=== PATIENT | female | born 1960 | race American Indian/Alaskan Native ===

== ENCOUNTER 2017-06-28 15:31 | Inpatient (IN) | payer SELFPAY ==
[2017-06-28] MEDS ORDERED: ZOFRAN IV ONE (16:47)
[2017-06-28] MEDS ORDERED: NACL 0.9% 1000 ML 1,000 ML IV ONE (16:48)
[2017-06-28] MEDS ORDERED: ANTIVERT PO ONE (16:48)
--- NOTE | 2017-06-28 16:54 | Emergency Department Report ---
ED Dizziness [facility] - General Chief Complaint: Chest Pain Stated Complaint: CHEST PAIN Time Seen by Provider: 06/28/17 16:08 Source: patient, EMS Mode of arrival: Stretcher Limitations: No Limitations - History of Present Illness Initial Comments: 56-year-old female brought in by EMS with complaints of dizziness nausea vomiting. Thia occured while at work. While en route to ER, she was given 4 baby aspirin and nitroglycerin by EMS. Patient recalls having chest pain 2 days ago but is resolved without any event. This morning she developed chest pain and then later developed dizziness. Dizziness is worse with movement of head, change in position of her body, if she gets up from sitting or turns her head from [id number]. She denies any tinnitus patient has headache. Chest pain is located over her left chest, it is non-reproducible and does not radiate Past medical history is only significant for asthma. MD Complaint: dizziness, lightheadedness, difficulty walking -: Sudden, This morning Timing: sudden onset Description: sense of movement, lightheadedness, off-balance, difficulty walking History of Same: No History of Trauma: No Severity: moderate Improves With: nothing Worsens With: movement, position Associated Symptoms: ataxia, chest pain, loss of appetite, malaise, shortness of breath, weakness - Related Data Home Medications Medication Instructions Recorded Confirmed Last Taken Unobtainable 06/28/17 06/28/17 Unknown Allergies Allergy/AdvReac Type Severity Reaction Status Date / Time No Known Allergies Allergy Verified 06/28/17 16:10 ED Review of Systems ROS: Stated complaint: CHEST PAIN Other details as noted in HPI ED Past Medical Hx - Medications Home Medications: Home Medications Medication Instructions Recorded Confirmed Last Taken Type Unobtainable 06/28/17 06/28/17 Unknown History ED Physical Exam - General Limitations: No Limitations General appearance: alert, anxious, in distress (moderate to severe distress) - Head Head exam: Present: atraumatic, normocephalic - Eye Eye exam: Present: PERRL, EOMI, nystagmus (UNIDIRECTIONAL horizontal nystagmus) . Absent: scleral icterus, conjunctival injection - ENT ENT exam: Present: normal exam, normal orophraynx, mucous membranes moist - Neck Neck exam: Present: normal inspection, full ROM. Absent: tenderness, meningismus, lymphadenopathy - Respiratory Respiratory exam: Present: normal lung sounds bilaterally. Absent: respiratory distress, wheezes, rales, rhonchi, stridor, chest wall tenderness, accessory muscle use, decreased breath sounds, prolonged expiratory - Cardiovascular Cardiovascular Exam: Present: regular rate, normal rhythm, normal heart sounds. Absent: bradycardia, tachycardia, irregular rhythm, systolic murmur, diastolic murmur, rubs - GI/Abdominal GI/Abdominal exam: Present: soft, distended (obese abdomen), normal bowel sounds. Absent: tenderness, guarding, rebound, hyperactive bowel sounds, hypoactive bowel sounds, organomegaly, mass, bruit - Rectal Rectal exam: Present: deferred - Extremities Exam Extremities exam: Present: normal inspection, full ROM, normal capillary refill , pedal edema - Back Exam Back exam: Present: normal inspection, full ROM. Absent: tenderness, CVA tenderness (R), CVA tenderness (L), muscle spasm - Neurological Exam Neurological exam: Present: alert, oriented X3, CN II-XII intact, motor sensory deficit ED Course Vital Signs 06/28/17 06/28/17 06/28/17 15:41 15:45 15:54 Temperature 98.5 F Pulse Rate 93 H 92 H 97 H Respiratory 16 21 22 Rate Blood Pressure 145/78 145/78 Blood Pressure [Right] O2 Sat by Pulse 88 88 Oximetry 06/28/17 06/28/17 06/28/17 16:00 16:09 16:15 Temperature 98.5 F Pulse Rate 93 H 93 H 94 H Respiratory 24 24 17 Rate Blood Pressure 156/91 135/90 Blood Pressure 156/91 [Right] O2 Sat by Pulse 92 92 Oximetry 06/28/17 06/28/17 06/28/17 16:21 16:31 16:45 Temperature Pulse Rate 87 77 Respiratory 22 18 20 Rate Blood Pressure 129/76 129/76 Blood Pressure [Right] O2 Sat by Pulse 95 96 Oximetry 06/28/17 06/28/17 06/28/17 17:29 17:31 17:45 Temperature Pulse Rate 91 H Respiratory 25 H Rate Blood Pressure 129/76 142/80 146/78 Blood Pressure [Right] O2 Sat by Pulse 98 89 85 Oximetry 06/28/17 06/28/17 06/28/17 18:00 18:15 18:31 Temperature Pulse Rate 93 H 96 H 92 H Respiratory 20 20 17 Rate Blood Pressure 152/79 152/79 148/77 Blood Pressure [Right] O2 Sat by Pulse 96 98 97 Oximetry 06/28/17 18:45 Temperature Pulse Rate 93 H Respiratory 23 Rate Blood Pressure 136/77 Blood Pressure [Right] O2 Sat by Pulse 98 Oximetry - Consultations Consultation #1: 06/28/17 22:49 I discussed with hospitalist on-call, and he accepts patient's admission. ED Medical Decision Making - Lab Data Result diagrams: 06/28/17 16:31 06/28/17 16:31 Lab Results 06/28/17 06/28/17 06/28/17 Range/Units 16:31 16:31 18:58 WBC 14.9 H (4.5-11.0) K/mm3 RBC 5.00 (3.65-5.03) M/mm3 Hgb 13.6 (10.1-14.3) gm/dl Hct 42.2 (30.3-42.9) % MCV 84 (79-97) fl MCH 27 L (28-32) pg MCHC 32 (30-34) % RDW 13.5 (13.2-15.2) % Plt Count 263 (140-440) K/mm3 Lymph % (Auto) 9.6 L (13.4-35.0) % [place] % (Auto) 4.6 (0.0-7.3) % Eos % (Auto) 0.5 (0.0-4.3) % Baso % (Auto) 0.2 (0.0-1.8) % Lymph # 1.4 (1.2-5.4) K/mm3 [place] # 0.7 (0.0-0.8) K/mm3 Eos # 0.1 (0.0-0.4) K/mm3 Baso # 0.0 (0.0-0.1) K/mm3 Seg Neutrophils % 85.1 H (40.0-70.0) % Seg Neutrophils # 12.7 H (1.8-7.7) K/mm3 Sodium 143 (137-145) mmol/L Potassium 3.9 (3.6-5.0) mmol/L Chloride 101.2 (98-107) mmol/L Carbon Dioxide 23 (22-30) mmol/L Anion Gap 23 mmol/L BUN 12 (7-17) mg/dL Creatinine 0.5 L (0.7-1.2) mg/dL Estimated GFR > 60 ml/min BUN/Creatinine Ratio 24 % Glucose 175 H (65-100) mg/dL Calcium 9.6 (8.4-10.2) mg/dL Troponin T < 0.010 < 0.010 (0.00-0.029) ng/mL - EKG Data -: EKG Interpreted by Me - EKG Data 06/28/17 17:33 Normal sinus rhythm rate of 93 bpm, LEFTWARD axis is slightly prolonged QTC ST elevations - Radiology Data Radiology results: report reviewed, image reviewed Critical Care Time: No Critical care attestation.: If time is entered above; I have spent that time in minutes in the direct care of this critically ill patient, excluding procedure time. ED Disposition Clinical Impression: Chest pain, rule out acute myocardial infarction, Dizziness and giddiness Disposition: OP ADMIT IP TO THIS HOSP Is pt being admited?: Yes Does the pt Need Aspirin: Yes Condition: Stable Instructions: Chest Pain (ED) Referrals: PRIMARY CARE, [Primary Care Provider] - 3-5 Days Time of Disposition: 22:52
[2017-06-28] MEDS ORDERED: FIORICET PO ONE (17:00)
[2017-06-28 17:04] LABS: Basophils % (Auto) 0.2 % (0.0-1.8); Eosinophils % (Auto) 0.5 % (0.0-4.3); Hematocrit 42.2 % (30.3-42.9); Hemoglobin 13.6 gm/dl (10.1-14.3); Mean Corpuscular HGB Conc 32 % (30-34); Mean Corpuscular Hemoglobin 27 pg (28-32); Mean Corpuscular Volume 84 fl (79-97); Platelet Count 263 K/mm3 (140-440); Red Cell Distribution Width 13.5 % (13.2-15.2); White Blood Count 14.9 K/mm3 (4.5-11.0)
[2017-06-28 17:31] LABS: Anion Gap 23 mmol/L; BUN/Creatinine Ratio 24; Blood Urea Nitrogen 12 mg/dL (7-17); Calcium 9.6 mg/dL (8.4-10.2); Carbon Dioxide 23 mmol/L (22-30); Chloride 101.2 mmol/L (98-107); Glucose 175 mg/dL (65-100); Potassium 3.9 mmol/L (3.6-5.0); Sodium 143 mmol/L (137-145)
--- NOTE | 2017-06-28 18:12 | Cat Scan Report ---
FINAL REPORT EXAM: CT HEAD/BRAIN WO CON HISTORY: vERTIGO, NAUSEA, HEADACHES TECHNIQUE: Standard unenhanced CT of the head at 5.0 millimeter axial increments PRIORS: None. FINDINGS: The ventricular system is normal in size and configuration. There is no evidence for parenchymal volume loss. There is no evidence for mass lesion, mass effect, midline shift, acute intracranial hemorrhage, or acute ischemia/ infarction. Visualized paranasal sinuses are clear. IMPRESSION: Negative CT of the head. No acute intracranial process noted.
[2017-06-28] MEDS ORDERED: REGLAN IV ONE (20:48)
[2017-06-28] MEDS ORDERED: TORADOL IV ONE (20:49)
[2017-06-28] MEDS ORDERED: NUBAIN IV ONE (21:00)
[2017-06-28] MEDS ORDERED: DILAUDID IV PRN (23:33)
[2017-06-28] MEDS ORDERED: ZOFRAN IV PRN (23:34)
[2017-06-29] MEDS: NITRO-BID 2% TP SCH ×5 (00:04→17:56)
--- NOTE | 2017-06-29 00:35 | History and Physical Report ---
CHIEF COMPLAINT: Chest pain. Other complaint include dizziness, nausea, and vomiting. HISTORY OF PRESENTING ILLNESS: The patient is a 56-year-old female, who started having chest pain 2 days prior to presentation. The pain resolved spontaneously, but started again this morning. The pain is in the anterior chest wall on both sides and was associated with nausea and vomiting. Pain does not radiate and is nonreproducible. There is no history of shortness of breath; however, the patient has history of dizziness that occurs when patient changes position from sitting to standing or moves her head from side to side. There is no history of tinnitus, no history of palpitations. The patient also complained about difficulty with walking and maintaining balance because of the dizziness. PAST MEDICAL HISTORY: Only pertinent for asthma. FAMILY HISTORY: Noncontributory. SOCIAL HISTORY: The patient lives with family. Does not smoke, does not drink alcohol, and does not use illicit drugs. MEDICATIONS: The patient's home medications are not known. ALLERGIES: There are no known drug allergies. REVIEW OF SYSTEMS: CONSTITUTIONAL: There is no fever, no chills, no diaphoresis. HEENT: There is headache, but no sore throat. CARDIOVASCULAR SYSTEM: Chest pain is present. There is no orthopnea. RESPIRATORY: There is no shortness of breath or cough. GASTROINTESTINAL SYSTEM: Nausea and vomiting present. No abdominal pain, diarrhea, or constipation. NEUROLOGICAL SYSTEM: Dizziness present. No altered mental status. MUSCULOSKELETAL SYSTEM: There is no joint pain or swelling. DERMATOLOGICAL SYSTEM: There is no skin rash or itching. GENITOURINARY SYSTEM: There is no dysuria, hematuria, or flank pain. Rest of system review is normal. PHYSICAL EXAMINATION: GENERAL: At the time of exam, the patient was found to be alert, oriented x 3 and in mild distress due to dizziness. VITAL SIGNS: Shows normal temperature with pulse of 87, respiration 16, blood pressure 123/59, O2 sat of 97% on room air. HEENT: Showed pupils to be equal, round, reactive to light and accommodation. Extraocular muscles are intact. NECK: Supple with no JVD or carotid bruit. CARDIOVASCULAR SYSTEM: Show first and second heart sounds with no gallops or murmur. RESPIRATORY SYSTEM: Show good air entry on both sides of the lung with no abnormal breath sounds. GASTROINTESTINAL SYSTEM: Show abdomen to be full, soft, nontender with no organomegaly or rigidity. NEUROLOGIC: Shows no focal deficits. MUSCULOSKELETAL SYSTEM: Show no joint swelling or tenderness. DERMATOLOGICAL SYSTEM: Show no skin rash. GENITOURINARY SYSTEM: Show no costovertebral angle tenderness. PERTINENT LABORATORY AND IMAGING STUDIES: The patient has CBC done with elevated white count of 14,900 with normal hemoglobin, normal hematocrit, and normal platelets. CBC differential showing elevated neutrophil count of 85.1%. The patient's chemistry was unremarkable. Troponin level came back normal. IMAGING STUDIES: The patient had a CT of the head without contrast done that shows no intracranial abnormality. DIAGNOSES: 1. Chest pain. 2. Dizziness. PLAN: The patient will be admitted to medical floor on telemetry. We will have cardiac enzymes involving troponin, total CK, and CK-MB checked q.6 hours x 2 more levels. The patient will be n.p.o. for Lexiscan stress test in the morning and the patient will be on nitro paste half inch to anterior chest wall q.6 hours. The patient will be on aspirin 325 mg by mouth daily and will be on normal saline at 125 mL an hour. This patient will be on heparin 5000 units subq q.12 hours for DVT prophylaxis and will be on Tylenol 650 mg every 4 hours for fever, headache, and aspirin 325 mg by mouth daily. The patient will be on Dilaudid 1 mg every 6 hours IV as needed for pain and will be on IV Zofran 4 mg every 6 hours for nausea and vomiting. The patient will be on oxygen by nasal cannula at 2 liters per minute and will be on her home medications after reconciliation reconciled. JOB# [id number] OCN/DINO KINSEY
[2017-06-29 01:02] LABS: Creatine Kinase MB 11.1 ng/mL (0.0-4.0)
[2017-06-29 01:03] LABS: Creatine Kinase 170 units/L (30-135)
[2017-06-29] MEDS: TYLENOL PO PRN ×2 (06:35→11:59)
[2017-06-29 07:42] LABS: Creatine Kinase MB 11.3 ng/mL (0.0-4.0)
[2017-06-29 07:44] LABS: Creatine Kinase 187 units/L (30-135)
[2017-06-29 09:23] LABS: Hematocrit 38.3 % (30.3-42.9); Hemoglobin 12.4 gm/dl (10.1-14.3); Mean Corpuscular HGB Conc 32 % (30-34); Mean Corpuscular Hemoglobin 28 pg (28-32); Mean Corpuscular Volume 86 fl (79-97); Platelet Count 224 K/mm3 (140-440); Red Blood Count 4.48 M/mm3 (3.65-5.03); Red Cell Distribution Width 13.8 % (13.2-15.2)
[2017-06-29] MEDS ORDERED: LEXISCAN IV ONE ×2 (10:50→10:52)
[2017-06-29] MEDS: HEPARIN SUB-Q SCH ×2 (12:01→22:09)
[2017-06-29] MEDS: ASPIRIN PO SCH (12:01)
--- NOTE | 2017-06-29 12:35 | Progress Note ---
Assessment and Plan Assessment and plan: Chest pain. patient had stress test today, was negative. Chest pain , non cardiac. Vertigo. Patient feels room spinning. Will do MRI Brain to rule out stroke. need to also r/o labyrinthitis. Consult Neurology Elevated BP. may start anti-hypertensive if BP elevation persists DVT prophylaxis with heparin subcut Obesity. I discussed with her importance of losing weight Full code status. History Interval history: dizziness, chest pain Hospitalist Physical - Physical exam Narrative exam: Gen:Not in acute distress, lying in bed, obese HEENT: Normocephalic, atraumatic Neck:Supple, No JVD Lungs: Clear to auscultation bilaterally, no rhonchi, No crackles Heart:S1 and S2 reg, no murmurs, rubs or gallop Abdomen: soft, Non tender, Non distended, normal bowel sounds Extremity:No tenderness, no edema, no clubbing, no cyanosis Neuro:Awake,alert,oriented x 3, non focal, moves all ext - Constitutional Vitals: Temp Pulse Resp BP Pulse Ox 98 F 74 20 141/87 97 06/29/17 04:53 06/29/17 12:00 06/29/17 06:37 06/29/17 12:00 06/29/17 04:53 Results - Labs CBC & Chem 7: 07/01/17 08:07 06/28/17 16:31 Labs: Laboratory Last Values WBC 10.0 K/mm3 (4.5-11.0) 06/29/17 08:11 RBC 4.48 M/mm3 (3.65-5.03) 06/29/17 08:11 Hgb 12.4 gm/dl (10.1-14.3) 06/29/17 08:11 Hct 38.3 % (30.3-42.9) 06/29/17 08:11 MCV 86 fl (79-97) 06/29/17 08:11 MCH 28 pg (28-32) 06/29/17 08:11 MCHC 32 % (30-34) 06/29/17 08:11 RDW 13.8 % (13.2-15.2) 06/29/17 08:11 Plt Count 224 K/mm3 (140-440) 06/29/17 08:11 Lymph % (Auto) 9.6 % (13.4-35.0) L 06/28/17 16:31 [place] % (Auto) 4.6 % (0.0-7.3) 06/28/17 16:31 Eos % (Auto) 0.5 % (0.0-4.3) 06/28/17 16:31 Baso % (Auto) 0.2 % (0.0-1.8) 06/28/17 16:31 Lymph # 1.4 K/mm3 (1.2-5.4) 06/28/17 16:31 [place] # 0.7 K/mm3 (0.0-0.8) 06/28/17 16:31 Eos # 0.1 K/mm3 (0.0-0.4) 06/28/17 16:31 Baso # 0.0 K/mm3 (0.0-0.1) 06/28/17 16:31 Seg Neutrophils % 85.1 % (40.0-70.0) H 06/28/17 16:31 Seg Neutrophils # 12.7 K/mm3 (1.8-7.7) H 06/28/17 16:31 Sodium 143 mmol/L (137-145) 06/28/17 16:31 Potassium 3.9 mmol/L (3.6-5.0) 06/28/17 16:31 Chloride 101.2 mmol/L (98-107) 06/28/17 16:31 Carbon Dioxide 23 mmol/L (22-30) 06/28/17 16:31 Anion Gap 23 mmol/L 06/28/17 16:31 BUN 12 mg/dL (7-17) 06/28/17 16:31 Creatinine 0.5 mg/dL (0.7-1.2) L 06/28/17 16:31 Estimated GFR > 60 ml/min 06/28/17 16:31 BUN/Creatinine Ratio 24 % 06/28/17 16:31 Glucose 175 mg/dL (65-100) H 06/28/17 16:31 Calcium 9.6 mg/dL (8.4-10.2) 06/28/17 16:31 Total Creatine Kinase 187 units/L (30-135) H 06/29/17 06:38 CK-MB (CK-2) 11.3 ng/mL (0.0-4.0) H 06/29/17 06:38 CK-MB (CK-2) Rel Index 6.0 (0-4) H 06/29/17 06:38 Troponin T < 0.010 ng/mL (0.00-0.029) 06/29/17 06:38
[2017-06-29] MEDS: NACL 0.9% 1000 ML 1,000 ML IV SCH (13:30)
[2017-06-30] MEDS: NACL 0.9% 1000 ML 1,000 ML IV SCH (05:50)
[2017-06-30] MEDS: NITRO-BID 2% TP SCH ×3 (05:51→16:23)
[2017-06-30] MEDS: TYLENOL PO PRN (09:06)
--- NOTE | 2017-06-30 09:56 | Magnetic Resonance Report ---
MRI OF THE BRAIN WITHOUT CONTRAST: HISTORY: CVA PROCEDURE: Multiplanar, multisequence MR imaging of the brain without IV contrast was performed. FINDINGS: The brain parenchyma signal intensity and its cleary white interface are within normal limits on all sequences. No evidence for acute ischemia, hemorrhage or mass. No chronic infarct or extra-axial fluid collection. The midline structures are central. The basal cisterns are patent. Normal ventricular size. The orbital cavities and sella turcica demonstrate no abnormality. The visualized paranasal sinuses and mastoid air cells are well aerated. IMPRESSION: Unremarkable non-enhanced MRI of the brain.
[2017-06-30] MEDS: HEPARIN SUB-Q SCH (10:00)
[2017-06-30] MEDS: ASPIRIN PO SCH (10:00)
[2017-06-30] MEDS ORDERED: PROTONIX IV SCH (11:00)
[2017-06-30 11:48] LABS: Hematocrit 39.4 % (30.3-42.9); Hemoglobin 13.2 gm/dl (10.1-14.3)
--- NOTE | 2017-06-30 11:55 | Treadmill Report ---
NUCLEAR PERFUSION SCAN REFERRING PHYSICIAN: . PROTOCOL: The patient was brought to the stress lab in a post-absorptive state, given 10 mCi of technetium 99m at rest. The patient underwent rest imaging. The patient underwent Lexiscan stress test per standard protocol. At peak stress, the patient was given 26 mCi of technetium 99m. Shortly thereafter, the patient underwent stress imaging. A technically difficult study due to body habitus. Raw imaging reveals mild GI artifact. No significant motion artifact. SPECT imaging examined carefully in horizontal long axis, vertical long axis, and short axis views. Technically difficult study, but grossly no significant reversible or perfusion defect suggestive of prior infarction or ischemia. Gated wall motion reveals normal systolic thickening, calculated ejection fraction of 70%. No TID. CONCLUSIONS: 1. Technically difficult study, but probably normal, grossly without significant evidence of ischemia or prior infarction. 2. Normal left ventricular systolic performance without evidence of transient ischemic dilatation or stress-induced segmental wall motion abnormalities. JOB# [id number] MARIN/DINO
[2017-06-30] MEDS ORDERED: Fluarix Quad 2017-2018(36 MOS+ IM ONE (12:00)
[2017-06-30] MEDS ORDERED: PREVNAR 13 IM ONE (12:00)
[2017-06-30] MEDS: D5/0.45NS 1,000 ML IV SCH (13:02)
--- NOTE | 2017-06-30 13:18 | Gastroenterology Consultation ---
<JEFFREY TINEO - Last Filed: 06/30/17 13:25> History of Present Illness - Reason for Consult Consult date: 06/30/17 BRBPR Requesting physician: COLLEEN ODEN - History of Present Illness Patient is a 56 y/o female with PMH of asthma who presented to the ER with the c /o CP, dizziness, N/V. Cardiac enzymes negative. Stress test negative. CT of head and MRI of brain unremarkable. GI has been consulted for BRBPR. This afternoon pt resting in bed, no acute distress. Reports BMs x 2 today with brown stool and bright red blood in the toilet. No hematemesis or melena. Denies fever, wt loss, abd pain, N/V, dysphagia, diarrhea, or constipation. Repeat HGB today was WNL at 13.2/39.4 (trending up). Takes diclofenac at home BID. No hx of PUD or liver disease. No Fhx of colon cancer. No previous colonoscopy. Past History Past Medical History: other (asthma, obesity) Past Surgical History: , Other (ankle) Social history: denies: smoking, alcohol abuse Medications and Allergies Allergies Allergy/AdvReac Type Severity Reaction Status Date / Time No Known Allergies Allergy Verified 06/28/17 16:10 Home Medications Medication Instructions Recorded Confirmed Last Taken Type Famotidine [Pepcid] 20 mg PO BID #30 tablet 07/01/17 Unknown Rx Meclizine [Antivert] 25 mg PO Q8HR PRN #20 tablet 07/01/17 Unknown Rx Prednisone [predniSONE 5 mg (6-Day 5 mg PO .TAPER #1 tab.ds.pk 07/01/17 Unknown Rx Pack, 21 Tabs)] amLODIPine [Norvasc] 5 mg PO QDAY #30 tablet 07/01/17 Unknown Rx Active Meds: Active Medications Acetaminophen (Tylenol) 650 mg PO Q4H PRN PRN Reason: For Pain/Fever/Headache Last Admin: 06/30/17 09:06 Dose: 650 mg Famotidine (Pepcid) 20 mg IV BID LIBRADO Hydromorphone HCl (Dilaudid) 1 mg IV Q4H PRN PRN Reason: Pain , Severe (7-10) Sodium Chloride (Nacl 0.9% 1000 Ml) 1,000 mls @ 125 mls/hr IV DIRECT LIBRADO Last Admin: 06/30/17 05:50 Dose: 125 mls/hr Dextrose/Sodium Chloride (D5/0.45ns) 1,000 mls @ 75 mls/hr IV DIRECT LIBRADO Last Admin: 06/30/17 13:02 Dose: 75 mls/hr Meclizine HCl (Antivert) 25 mg PO Q8HR [facility] Nitroglycerin (Nitro-Bid 2%) 0.5 inch TP QIDNTG LIBRADO PRN Reason: Protocol Last Admin: 06/30/17 11:59 Dose: 0.5 inch Ondansetron HCl (Zofran) 4 mg IV Q6H PRN PRN Reason: Nausea And Vomiting Review of Systems - Review of Systems All systems: negative Constitutional: other (dizziness) Gastrointestinal: hematochezia Exam - Constitutional Vital Signs: Temp Pulse Resp BP Pulse Ox 98.7 F 76 18 146/84 96 06/30/17 12:41 06/30/17 12:41 06/30/17 12:41 06/30/17 12:41 06/30/17 12:41 General appearance: no acute distress, obese - EENT Eyes: PERRL, EOM intact ENT: hearing intact - Respiratory Respiratory: bilateral: wheezing - Cardiovascular Rhythm: regular Heart Sounds: Present: S1 & S2 - Gastrointestinal General gastrointestinal: Present: soft, non-tender, normal bowel sounds - Integumentary Integumentary: Present: warm, dry - Neurologic Neurological: alert and oriented x3 - Labs CBC & Chem 7: 06/30/17 11:27 06/28/17 16:31 Lab Results: Laboratory Results - last 24 hr 06/30/17 11:27 Hgb 13.2 Hct 39.4 Assessment and Plan 1.GI bleed 2.hematochezia -HGB 13.2-trending up -continue to monitor H/H and transfuse as needed -BMs x 2 today with brown stool and bright red blood in toilet -hemodynamically stable -etiology unclear- hemorrhoid vs diverticular vs malignancy vs other -clinically pt is stable w/o associated symptoms and H/H stable -recommend pt have a colonoscopy as an outpatient- office information and card given to pt -okay to be d/c per GI standpoint with f/u clinic appt in 1-2 weeks -will sign off, please re-consult if needed <BUSTER RAJPUT - Last Filed: 07/01/17 11:55> Medications and Allergies Active Meds: Active Medications Acetaminophen (Tylenol) 650 mg PO Q4H PRN PRN Reason: For Pain/Fever/Headache Last Admin: 06/30/17 09:06 Dose: 650 mg Amlodipine Besylate (Norvasc) 5 mg PO QDAY [facility] Famotidine (Pepcid) 20 mg IV BID [facility] Last Admin: 07/01/17 10:42 Dose: 20 mg Hydromorphone HCl (Dilaudid) 1 mg IV Q4H PRN PRN Reason: Pain , Severe (7-10) Dextrose/Sodium Chloride (D5/0.45ns) 1,000 mls @ 75 mls/hr IV DIRECT [facility] Last Admin: 07/01/17 07:18 Dose: 75 mls/hr Lamotrigine (Lamictal) 50 mg PO BID [facility] Last Admin: 07/01/17 10:42 Dose: 50 mg Meclizine HCl (Antivert) 25 mg PO Q8HR [facility] Last Admin: 07/01/17 06:07 Dose: 25 mg Methylprednisolone Sodium Succinate (Solu-Medrol) 80 mg IV ONCE NR Stop: 07/01/17 15:00 Ondansetron HCl (Zofran) 4 mg IV Q6H PRN PRN Reason: Nausea And Vomiting Exam - Constitutional Vital Signs: Temp Pulse Resp BP Pulse Ox 99.7 F H 76 20 188/99 95 07/01/17 08:33 07/01/17 10:48 07/01/17 10:00 07/01/17 10:48 07/01/17 08:33 - Labs CBC & Chem 7: 07/01/17 08:07 06/28/17 16:31 Lab Results: Laboratory Results - last 24 hr 06/30/17 06/30/17 07/01/17 16:14 21:11 00:54 Hgb 12.9 12.5 Hct 38.5 37.9 POC Glucose 159 H 07/01/17 08:07 Hgb 13.2 Hct 39.3 POC Glucose Assessment and Plan - Patient Problems (1) Rectal bleeding Current Visit: Yes Status: Acute Plan to address problem: The patient was personally seen and examined. She has had minor rectal bleeding and a has a normal H&H. Will plan for outpatient colonoscopy. Thank you for asking us to see her in consultation. Buster Rajput MD
[2017-06-30] MEDS: PEPCID IV SCH ×2 (13:32→22:22)
[2017-06-30] MEDS: ANTIVERT PO SCH ×2 (13:32→22:22)
--- NOTE | 2017-06-30 16:27 | Progress Note ---
Assessment and Plan Assessment and plan: Chest pain. patient had stress test yesterday, was negative. Chest pain , non cardiac, likely due to GERD. Vertigo. Patient feels room spinning. MRI Brain uremarkable, no new stroke. need to also r/o labyrinthitis. Consulted Neurology Elevated BP. may start anti-hypertensive if BP elevation persists Bright red blood per rectum, one episode. Obtain H/H Q 8h, stop Aspirin and Heparin subcut. Consulted GI Physician. She was evaluated by Dr. Berumen and I discussed with him. For outpatient workup since H/H stable. DVT prophylaxis with SCDs only. Heparin subcut discontinued Obesity. I discussed with her importance of losing weight Full code status. History Interval history: dizziness, chest pain resolved Bright red blood per rectum episode today Hospitalist Physical - Physical exam Narrative exam: Gen:Not in acute distress, lying in bed, obese HEENT: Normocephalic, atraumatic Neck:Supple, No JVD Lungs: Clear to auscultation bilaterally, no rhonchi, No crackles Heart:S1 and S2 reg, no murmurs, rubs or gallop Abdomen: soft, Non tender, Non distended, normal bowel sounds Extremity:No tenderness, no edema, no clubbing, no cyanosis Neuro:Awake,alert,oriented x 3, non focal, moves all ext - Constitutional Vitals: Temp Pulse Resp BP Pulse Ox 98.7 F 72 18 173/78 96 06/30/17 12:41 06/30/17 16:23 06/30/17 12:41 06/30/17 16:23 06/30/17 12:41 Results - Labs CBC & Chem 7: 07/01/17 08:07 06/28/17 16:31 Labs: Laboratory Last Values WBC 10.0 K/mm3 (4.5-11.0) 06/29/17 08:11 RBC 4.48 M/mm3 (3.65-5.03) 06/29/17 08:11 Hgb 13.2 gm/dl (10.1-14.3) 06/30/17 11:27 Hct 39.4 % (30.3-42.9) 06/30/17 11:27 MCV 86 fl (79-97) 06/29/17 08:11 MCH 28 pg (28-32) 06/29/17 08:11 MCHC 32 % (30-34) 06/29/17 08:11 RDW 13.8 % (13.2-15.2) 06/29/17 08:11 Plt Count 224 K/mm3 (140-440) 06/29/17 08:11 Lymph % (Auto) 9.6 % (13.4-35.0) L 06/28/17 16:31 Parke % (Auto) 4.6 % (0.0-7.3) 06/28/17 16:31 Eos % (Auto) 0.5 % (0.0-4.3) 06/28/17 16:31 Baso % (Auto) 0.2 % (0.0-1.8) 06/28/17 16:31 Lymph # 1.4 K/mm3 (1.2-5.4) 06/28/17 16:31 Parke # 0.7 K/mm3 (0.0-0.8) 06/28/17 16:31 Eos # 0.1 K/mm3 (0.0-0.4) 06/28/17 16:31 Baso # 0.0 K/mm3 (0.0-0.1) 06/28/17 16:31 Seg Neutrophils % 85.1 % (40.0-70.0) H 06/28/17 16:31 Seg Neutrophils # 12.7 K/mm3 (1.8-7.7) H 06/28/17 16:31 Sodium 143 mmol/L (137-145) 06/28/17 16:31 Potassium 3.9 mmol/L (3.6-5.0) 06/28/17 16:31 Chloride 101.2 mmol/L (98-107) 06/28/17 16:31 Carbon Dioxide 23 mmol/L (22-30) 06/28/17 16:31 Anion Gap 23 mmol/L 06/28/17 16:31 BUN 12 mg/dL (7-17) 06/28/17 16:31 Creatinine 0.5 mg/dL (0.7-1.2) L 06/28/17 16:31 Estimated GFR > 60 ml/min 06/28/17 16:31 BUN/Creatinine Ratio 24 % 06/28/17 16:31 Glucose 175 mg/dL (65-100) H 06/28/17 16:31 Calcium 9.6 mg/dL (8.4-10.2) 06/28/17 16:31 Total Creatine Kinase 187 units/L (30-135) H 06/29/17 06:38 CK-MB (CK-2) 11.3 ng/mL (0.0-4.0) H 06/29/17 06:38 CK-MB (CK-2) Rel Index 6.0 (0-4) H 06/29/17 06:38 Troponin T < 0.010 ng/mL (0.00-0.029) 06/29/17 06:38
[2017-06-30 16:30] LABS: Hematocrit 38.5 % (30.3-42.9); Hemoglobin 12.9 gm/dl (10.1-14.3)
[2017-06-30] MEDS: LaMICtal PO SCH (22:22)
[2017-07-01 01:25] LABS: Hematocrit 37.9 % (30.3-42.9); Hemoglobin 12.5 gm/dl (10.1-14.3)
[2017-07-01] MEDS: ANTIVERT PO SCH ×3 (06:07→23:05)
[2017-07-01] MEDS: NITRO-BID 2% TP SCH (06:09)
[2017-07-01] MEDS: D5/0.45NS 1,000 ML IV SCH (07:18)
[2017-07-01 08:22] LABS: Hematocrit 39.3 % (30.3-42.9); Hemoglobin 13.2 gm/dl (10.1-14.3)
[2017-07-01] MEDS: PEPCID IV SCH ×2 (10:42→23:05)
[2017-07-01] MEDS: LaMICtal PO SCH ×2 (10:42→23:04)
--- NOTE | 2017-07-01 10:43 | Discharge Summary ---
Providers - Providers Date of Admission: 06/28/17 23:29 Date of discharge: 07/01/17 Attending physician: COLLEEN ODEN 06/30/17 09:39 Consult to Physician [CONS] Routine Consulting Provider: YISSEL ROSENBAUM Reason For Exam: Dizziness Place consult to:: Dr. Rosenbaum Notified:: Tay ROTH Phone number called:: Was contact made?: Yes If yes, spoke with:: Milly-office Time called:: 10:05 06/30/17 10:37 Consult to Physician [CONS] Routine Consulting Provider: BUSTER BERUMEN Reason For Exam: Bright red blood per rectum Place consult to:: Dr. Berumen Notified:: Tay ROTH Phone number called:: Was contact made?: Yes If yes, spoke with:: Denise-Office Time called:: 11:11 Primary care physician: ORACLE OBIEE DEVELOPER Hospitalization Condition: Fair Disposition: DC-01 TO HOME OR SELFCARE Core Measure Documentation - Palliative Care Palliative Care/ Comfort Measures: Not Applicable - Core Measures Any of the following diagnoses?: none Exam - Constitutional Vitals: Temp Pulse Resp BP Pulse Ox 99.7 F H 81 81 H 178/100 95 07/01/17 08:33 07/01/17 08:33 07/01/17 08:33 07/01/17 08:33 07/01/17 08:33 Plan Activity: advance as tolerated Diet: low fat, low cholesterol, low salt Additional Instructions: 1.Follow up with PCP in 1 week. 2.Follow up with Dr. Rosenbaum in 1 week Follow up with: PRIMARY CARE, [Primary Care Provider] - 3-5 Days Prescriptions: amLODIPine [Norvasc] 5 mg PO QDAY #30 tablet Meclizine [Antivert] 25 mg PO Q8HR PRN #20 tablet PRN Reason: dizziness Prednisone [predniSONE 5 mg (6-Day Pack, 21 Tabs)] 5 mg PO .TAPER #1 tab.ds.pk
[2017-07-01] MEDS ORDERED: APRESOLINE IV ONE ×2 (11:00→16:25)
[2017-07-01] MEDS ORDERED: NORVASC PO SCH (11:00)
[2017-07-01] MEDS ORDERED: NORVASC PO ONE (16:25)
--- NOTE | 2017-07-01 17:30 | Progress Note ---
Hospitalist Physical - Constitutional Vitals: Temp Pulse Resp BP Pulse Ox 99.5 F 77 18 170/82 97 07/01/17 17:20 07/01/17 17:20 07/01/17 17:20 07/01/17 17:20 07/01/17 17:20 Results - Labs CBC & Chem 7: 07/01/17 08:07 06/28/17 16:31 Labs: Laboratory Last Values WBC 10.0 K/mm3 (4.5-11.0) 06/29/17 08:11 RBC 4.48 M/mm3 (3.65-5.03) 06/29/17 08:11 Hgb 13.2 gm/dl (10.1-14.3) 07/01/17 08:07 Hct 39.3 % (30.3-42.9) 07/01/17 08:07 MCV 86 fl (79-97) 06/29/17 08:11 MCH 28 pg (28-32) 06/29/17 08:11 MCHC 32 % (30-34) 06/29/17 08:11 RDW 13.8 % (13.2-15.2) 06/29/17 08:11 Plt Count 224 K/mm3 (140-440) 06/29/17 08:11 Lymph % (Auto) 9.6 % (13.4-35.0) L 06/28/17 16:31 [place] % (Auto) 4.6 % (0.0-7.3) 06/28/17 16:31 Eos % (Auto) 0.5 % (0.0-4.3) 06/28/17 16:31 Baso % (Auto) 0.2 % (0.0-1.8) 06/28/17 16:31 Lymph # 1.4 K/mm3 (1.2-5.4) 06/28/17 16:31 [place] # 0.7 K/mm3 (0.0-0.8) 06/28/17 16:31 Eos # 0.1 K/mm3 (0.0-0.4) 06/28/17 16:31 Baso # 0.0 K/mm3 (0.0-0.1) 06/28/17 16:31 Seg Neutrophils % 85.1 % (40.0-70.0) H 06/28/17 16:31 Seg Neutrophils # 12.7 K/mm3 (1.8-7.7) H 06/28/17 16:31 Sodium 143 mmol/L (137-145) 06/28/17 16:31 Potassium 3.9 mmol/L (3.6-5.0) 06/28/17 16:31 Chloride 101.2 mmol/L (98-107) 06/28/17 16:31 Carbon Dioxide 23 mmol/L (22-30) 06/28/17 16:31 Anion Gap 23 mmol/L 06/28/17 16:31 BUN 12 mg/dL (7-17) 06/28/17 16:31 Creatinine 0.5 mg/dL (0.7-1.2) L 06/28/17 16:31 Estimated GFR > 60 ml/min 06/28/17 16:31 BUN/Creatinine Ratio 24 % 06/28/17 16:31 Glucose 175 mg/dL (65-100) H 06/28/17 16:31 POC Glucose 159 (70-105) H 06/30/17 21:11 Calcium 9.6 mg/dL (8.4-10.2) 06/28/17 16:31 Total Creatine Kinase 187 units/L (30-135) H 06/29/17 06:38 CK-MB (CK-2) 11.3 ng/mL (0.0-4.0) H 06/29/17 06:38 CK-MB (CK-2) Rel Index 6.0 (0-4) H 06/29/17 06:38 Troponin T < 0.010 ng/mL (0.00-0.029) 06/29/17 06:38
[2017-07-01] MEDS ORDERED: APRESOLINE IV PRN (17:31)
[2017-07-02] MEDS: ANTIVERT PO SCH (06:37)
[2017-07-02] MEDS ORDERED: NORVASC PO ONE (10:00)
[2017-07-02] MEDS ORDERED: NORVASC PO SCH (10:00)
[2017-07-02] MEDS: LaMICtal PO SCH (10:38)
[2017-07-02] MEDS: PEPCID IV SCH (10:38)
[2017-07-02 13:00] VITALS: BP 148/81
== END 2017-07-02 14:09 | disposition home or self-care (01) | DRG 392 ==
LOC: ED 15:31 → 4A 23:29
PROVIDERS: ADMIT Internal Medicine; ATTEND Internal Medicine
PROC: 3E0234Z Introduction of Serum, Toxoid and Vaccine into Muscle, Percutaneous Approach (ICD-10-PCS; principal; 2017-06-30)
DX: K21.9 Gastro-esophageal reflux disease without esophagitis (principal); K92.2 Gastrointestinal hemorrhage, unspecified; R42 Dizziness and giddiness; R07.89 Other chest pain; E66.9 Obesity, unspecified; Z68.32 Body mass index [BMI] 32.0-32.9, adult; Z23 Encounter for immunization
CPT/HCPCS: 36415; 70450; 70551; 78452; 80048; 82270; 82550; 82553; 82962; 84484; 85014; 85018; 85025; 85027; 90670; 90686; 93005; 93010; 93017; 96361; 96374; 96375; A9502; J0360; J1644; J1885; J2300; J2405; J2765; J2785; J2930; J7030

== ENCOUNTER 2018-08-30 09:50 | Emergency (ER) | payer SELFPAY ==
[2018-08-30 10:04] VITALS: BP 160/91
--- NOTE | 2018-08-30 11:28 | Emergency Department Report ---
ED Lower Extremity HPI - General Chief Complaint: Extremity Injury, Lower Stated Complaint: LFT KNEE/INJURY/PAIN Time Seen by Provider: 08/30/18 11:27 Source: patient Mode of arrival: Wheelchair Limitations: No Limitations - History of Present Illness Initial Comments: Nirmala is a 57-year-old -[place] female who comes to the emergency room today after being at the grocery store and hitting her toe on a copper floorboard. She states that she felt a pop in her knee and has had pain since. She did not fall. There was no blunt trauma to the knee. Patient states that she has severe arthritis in the right knee. Vision is ambulatory but complaining of pain with ambulation -: Sudden - Related Data Previous Rx's Medication Instructions Recorded Last Taken Type Famotidine [Pepcid] 20 mg PO BID #30 tablet 07/01/17 Unknown Rx Meclizine [Antivert] 25 mg PO Q8HR PRN #20 tablet 07/01/17 Unknown Rx amLODIPine [Norvasc] 5 mg PO QDAY #30 tablet 07/01/17 Unknown Rx predniSONE [Deltasone] 20 mg PO DAILY #5 tablet 08/30/18 Unknown Rx traMADol [Ultram] 50 mg PO Q6HR PRN #12 tablet 08/30/18 Unknown Rx Allergies Allergy/AdvReac Type Severity Reaction Status Date / Time No Known Allergies Allergy Verified 06/28/17 16:10 ED Review of Systems ROS: Stated complaint: LFT KNEE/INJURY/PAIN Other details as noted in HPI Comment: All other systems reviewed and negative Constitutional: denies: see HPI Eyes: denies: eye pain ENT: denies: ear pain Respiratory: denies: orthopnea Cardiovascular: denies: palpitations Endocrine: denies: flushing Gastrointestinal: denies: nausea Genitourinary: denies: urgency Musculoskeletal: as per HPI Skin: denies: rash Neurological: denies: headache Psychiatric: denies: depression Hematological/Lymphatic: denies: easy bleeding ED Past Medical Hx - Past Medical History Previous Medical History?: Yes Hx Asthma: Yes Additional medical history: OA - Surgical History Past Surgical History?: Yes Additional Surgical History: right foot surgery. . kidney stones - Social History Smoking Status: Never Smoker Substance Use Type: None - Medications Home Medications: Home Medications Medication Instructions Recorded Confirmed Last Taken Type Famotidine [Pepcid] 20 mg PO BID #30 tablet 07/01/17 Unknown Rx Meclizine [Antivert] 25 mg PO Q8HR PRN #20 tablet 07/01/17 Unknown Rx amLODIPine [Norvasc] 5 mg PO QDAY #30 tablet 07/01/17 Unknown Rx predniSONE [Deltasone] 20 mg PO DAILY #5 tablet 08/30/18 Unknown Rx traMADol [Ultram] 50 mg PO Q6HR PRN #12 tablet 08/30/18 Unknown Rx ED Physical Exam - General Limitations: No Limitations - Head Head exam: Present: atraumatic - Eye Eye exam: Present: normal appearance Pupils: Present: normal accommodation - ENT ENT exam: Present: normal exam - Neck Neck exam: Present: normal inspection - Respiratory Respiratory exam: Present: normal lung sounds bilaterally - Cardiovascular Cardiovascular Exam: Present: regular rate - GI/Abdominal GI/Abdominal exam: Present: soft - Rectal Rectal exam: Present: deferred - Expanded Lower Extremity Exam Left Upper Leg exam: Present: normal inspection Knee exam: Present: tenderness, swelling (OBESE). Absent: effusion (no palpable effusion-OBESE) Lower Leg exam: Present: normal inspection Ankle exam: Present: normal inspection ED Course Vital Signs 08/30/18 09:58 Temperature 98.1 F Pulse Rate 81 Respiratory 18 Rate Blood Pressure 160/91 O2 Sat by Pulse 96 Oximetry ED Lower Extremity MDM - Radiology Data Radiology results: report reviewed, image reviewed EFFUSION - Medical Decision Making XRAY NOTED IMMOB AND CRUTCHES REFERRAL TO ORTHO - Differential Diagnosis RO FX Critical care attestation.: If time is entered above; I have spent that time in minutes in the direct care of this critically ill patient, excluding procedure time. ED Disposition Clinical Impression: Knee pain, Knee effusion, Osteoarthritis Disposition: DC-01 TO HOME OR SELFCARE Is pt being admited?: No Does the pt Need Aspirin: No Condition: Stable Instructions: Osteoarthritis (ED) Additional Instructions: REST ELEVATE LEG WHEN YOU CAN IMMOBILIZER CRUTCHES MOTRIN OR TYLENOL FOR MILD PAIN MEDS ORDERED TODAY FOLLOW UP WITH ORTHO NAZARIO Prescriptions: predniSONE [Deltasone] 20 mg PO DAILY #5 tablet traMADol [Ultram] 50 mg PO Q6HR PRN #12 tablet PRN Reason: Pain Referrals: PRIMARY CARE, [Primary Care Provider] - 3-5 Days RENETTA COLEMAN MD [Staff Physician] - 3-5 Days Time of Disposition: 12:24
--- NOTE | 2018-08-30 12:12 | XRay Report ---
LEFT KNEE, 3 views: History: Left knee pain. Normal bone mineralization. Moderate tricompartmental osteoarthritic changes are identified. No evidence for fracture or bone lesion. Small joint effusion extends to the suprapatellar bursa. There also appears to be a 7 mm calcified foreign body in the superior patellar bursa seen on the lateral view. IMPRESSION: Advanced osteoarthritis. Joint effusion. Suspected 7 mm calcified foreign body in the joint space.
== END 2018-08-30 13:06 | disposition home or self-care (01) ==
LOC: ED 09:50
DX: M25.462 Effusion, left knee (principal); J45.909 Unspecified asthma, uncomplicated

== ENCOUNTER 2019-09-28 10:17 | Day surgery (SDC) | payer OTHER ==
[2019-09-28] MEDS ORDERED: SODIUM CHLORIDE 0.9% 1000 ML 1,000 ML IV SCH (10:45)
[2019-09-28] MEDS ORDERED: ALBUTEROL 2.5 MG/3 ML NEBU IH ONE (11:08)
[2019-09-28] MEDS ORDERED: propofoL 200 MG/20 ML VIAL IV ONE ×3 (11:14→12:13)
[2019-09-28] MEDS ORDERED: LIDOCAINE (1%) 10 MG/1 ML VIAL 20 ML MDV ONE (11:15)
--- NOTE | 2019-09-28 11:17 | Anesthesia Consultation ---
Anesthesia Consult and Med Hx Date of service: 09/28/19 - Airway Anesthetic Teeth Evaluation: Caps (upper front) ROM Head & Neck: Adequate Mental/Hyoid Distance: Adequate Mallampati Class: Class III Intubation Access Assessment: Possibly Difficult - Pulmonary Exam CTA: No (Narendra wheezing, albuterol txt ) - Cardiac Exam Cardiac Exam: RRR - Pre-Operative Health Status ASA Pre-Surgery Classification: ASA3 Proposed Anesthetic Plan: MAC - Pulmonary Hx Asthma: Yes Hx Sleep Apnea: Yes - Cardiovascular System Hx Hypertension: Yes - Other Systems Hx Obesity: Yes
--- NOTE | 2019-09-28 11:18 | Anesthesia Day of Surgery ---
Anesthesia Day of Surgery - Day of Surgery Patient Examined: Yes Patient H&P Reviewed: Yes Patient is NPO: Yes
[2019-09-28] MEDS ORDERED: LIDOCAINE 2% UROJECT 10 ML JELLY ONE (11:51)
[2019-09-28] MEDS ORDERED: LIDOCAINE 2% UROJECT 10 ML JELLY MM ONE (12:22)
[2019-09-28] MEDS ORDERED: fentaNYL 100 MCG/2 ML INJ ONE ×2 (12:35→15:05)
[2019-09-28] MEDS: fentaNYL 250 MCG/5 ML INJ IV SCH ×2 (12:36→13:06)
--- NOTE | 2019-09-28 12:48 | Operative Report ---
Operative Report Operative Report: Procedure: Colonoscopy with multiple Snare polypectomies, submucosal injection with elevation of colon polyp ablation of polyp base, hemoclip application. Hemorrhoidal band ligation. Attending physician: Anjum Veronica M.D. Data Entry Clerk: Anjum Veronica M.D. Indication: Patient is a 58-year-old female who presents for colonoscopy because her history of rectal bleeding and change in bowel habits and rectal pain with symptomatic internal hemorrhoids. This colonoscopy serves to evaluate patient so that treatment may be directed based on the findings. Consent: Informed consent was obtained after advising the patient and family regarding nature of this procedure, its indications, potential benefits as well as possible complications including but not limited to bleeding perforation and adverse reaction to medication, infection as well as other cardiopulmonary complications. An informed written and verbal consent was then obtained after due opportunity was provided for questions and answers. Monitoring: Patient was monitored continuously with pulse oximetry and electrocardiographic recordings as well as blood pressure recordings. Vital signs remained stable throughout this procedure with no untoward events. Preoperative assessment: Patient was assessed immediately prior to this procedure for capacity to tolerate monitored anesthesia care and moderate sedation as well as general anesthesia. Patient's ASA classification is 3, Mallampati class is 2, Hyomental distance is 3. Instrument: Olympus video colonoscope.: CF-HQ 190L Medications: Propofol given intravenously in divided doses. For details please refer to anesthesia records. Description of procedure: Patient was placed in the left lateral decubitus position after achieving sedation, a digital rectal examination was performed following which the colonoscope was introduced into the anal verge and advanced to the cecum which was identified by the cecal valve, the appendiceal orifice, as well as by the cecal strap and direct transillumination. The colonoscope was subsequently withdrawn with careful inspection of all mucosal surfaces. Patient tolerated this procedure well and was subsequently taken to the recovery room. The following findings were noted. Findings: The preparation was adequate with a [place] prep scale score of greater than 6. The withdrawal time from the cecum was greater than 10 minutes. Patient tolerated procedure well with no untoward events. Patient had a broad- based sessile polyp seen in the ascending measuring about 10 mm. This was elevated with submucosal injection of saline and removed by snare electrocautery and retrieved. The base of the polyp was then ablated. Patient also had an 8- 10 mm polyp that was flat in the rectum which again was removed by snare electrocautery after submucosal injection. There was an joining 5 mm polyp "was also removed by snare electrocautery. A Hemoclip was applied over the polypectomy defect in the rectum. Patient had large prominent prolapsing internal hemorrhoids seen on the antegrade view and also on the retroflex examination of the anal verge. This appeared friable and bled easily on contact. After completing the procedure, the upper endoscope was precluded with a super speed band multiple band ligator ([employer]). Hemorrhoidal band ligation was successfully completed after applying 5 bands. Patient tolerated the procedure well with no untoward events. Lidocaine gel was applied in the rectum for local analgesia. Patient had a few scattered diverticula seen in the sigmoid colon and descending colon and ascending colon. Impression: Ascending colon polyp status post snare polypectomy and submucosal injection and polyp ablation Rectal polyp status post submucosal injection and snare polypectomy and Hemoclip application Prominent internal hemorrhoids, status post hemorrhoidal band ligation. Plan: Follow pathology report. High-fiber diet. Daily sitz bath Patient to apply lidocaine ointment 5% per rectum every 6 hours as needed. Anusol HC suppositories per rectum every night. Patient to use stool softeners as needed. MiraLAX 17 g in 8 ounce glass of water daily. Tramadol 50 mg every 6 hours as needed for pain. Patient is scheduled for further outpatient follow-up. Patients further instructed that if she has persistent bleeding and or fevers to call the office immediately.
--- NOTE | 2019-09-28 13:12 | Discharge Summary ---
Short Stay Discharge Plan Activity: advance as tolerated Weight Bearing Status: Weight Bear as Tolerated Diet: regular Additional Instructions: Post Sedation D/C Instructions When you return home you may resume your regular diet unless otherwise directed. -Go directly home from the hospital and rest quietly. You may resume normal activities tomorrow. -Do NOT drive, return to work, operate any machinery or make any important personal or business decisions today. -Do NOT drink any alcohol or take nerve or sleeping drugs. They add to the effects of the medicine still present in your body. -NO ASPIRIN OR NSAIDS IN THE NEXT 5 DAYS -FOLLOW UP WITH DR. LYNCH IN THE NEXT 1-2 WEEKS -START A DAILY FIBER WITH PLENTY OF FLUIDS DAILY Follow up with: ETHAN FORTUNE MD [Primary Care Provider] - 7 Days
[2019-09-28 13:13] VITALS: BP 162/92
--- NOTE | 2019-09-28 13:25 | Post Anesthesia Evaluation ---
- Post Anesthesia Evaluation Patient Participated: Yes Airway Patent: Yes Stable Respiratory Function: Yes Nausea/Vomiting: No Temp > 96.8F: Yes Pain Manageable: Yes Adequeate Hydration: Yes Anesthesia Complications: No Block Receding Appropriately: Not Applicable Patient on Ventilator: No
[2019-09-28] MEDS ORDERED: WATER FOR IRRIG STERILE 1,000 ML BOTTLE ONE (16:06)
[2019-09-28] MEDS ORDERED: WATER FOR IRRIG STERILE 250 ML BOTTLE IR ONE (16:06)
== END 2019-09-28 10:18 | disposition home or self-care (01) ==
LOC: GIO 10:17
PROVIDERS: ATTEND Internal Medicine Gastroenterology
DX: K62.5 Hemorrhage of anus and rectum (principal); K64.8 Other hemorrhoids; D12.2 Benign neoplasm of ascending colon; K62.1 Rectal polyp; R19.4 Change in bowel habit; J45.909 Unspecified asthma, uncomplicated; G47.33 Obstructive sleep apnea (adult) (pediatric); I10 Essential (primary) hypertension; K21.9 Gastro-esophageal reflux disease without esophagitis; E66.9 Obesity, unspecified; Z68.43 Body mass index [BMI] 50.0-59.9, adult; Z79.899 Other long term (current) drug therapy; Z98.890 Other specified postprocedural states; Z98.891 History of uterine scar from previous surgery
CPT/HCPCS: 45381; 45385; 45398; 88305; J2704; J3010; J7030

== ENCOUNTER 2019-10-17 06:03 | Emergency (ER) | payer OTHER ==
[2019-10-17 07:20] LABS: Basophils % (Auto) 0.6 % (0.0-1.8); Eosinophils # (Auto) 0.1 K/mm3 (0.0-0.4); Eosinophils % (Auto) 1.3 % (0.0-4.3); Hematocrit 32.1 % (30.3-42.9); Hemoglobin 10.7 gm/dl (10.1-14.3); Lymphocytes # (Auto) 1.2 K/mm3 (1.2-5.4); Lymphocytes % (Auto) 15.8 % (13.4-35.0); Mean Corpuscular HGB Conc 33 % (30-34); Mean Corpuscular Volume 86 fl (79-97); Monocytes # (Auto) 0.4 K/mm3 (0.0-0.8); Monocytes % (Auto) 5.7 % (0.0-7.3); Platelet Count 225 K/mm3 (140-440); Red Blood Count 3.73 M/mm3 (3.65-5.03); Red Cell Distribution Width 13.7 % (13.2-15.2)
[2019-10-17] MEDS ORDERED: IPRATROPIUM/ALBUTEROL SULFATE 3 ML AMPUL.NEB IH ONE (07:20)
--- NOTE | 2019-10-17 07:20 | Emergency Department Report ---
HPI - General Chief Complaint: GI Bleed Time Seen by Provider: 10/17/19 06:44 - HPI HPI: 58-year-old female presents to the emergency department from home with a complaint of some episodes of rectal bleeding. Patient says that she had one episode on Wednesday night and 4 episodes since last night in which the patient thought she was having a bowel movement but says that she passed bright red blood. She says that she now feels dizzy/lightheaded. She also says that she has some shortness of breath when she starts walking around. The patient was here on 09/28/2019 and had a colonoscopy with some polypectomy and treatment of hemorrhoids. Her front desk attendant is Dr. Veronica and her primary care physician is Dr. Núñez. She has a past medical history of osteoarthritis, asthma, hypertension, diverticulitis, hemorrhoids, high cholesterol. She has not taken anything for symptoms prior to presentation today. ED Past Medical Hx - Past Medical History Previous Medical History?: Yes Hx Hypertension: Yes Hx Arthritis: Yes Hx Asthma: Yes Additional medical history: OA. diverticulitis. hemorroids. high cholestrol - Surgical History Additional Surgical History: right foot surgery. - Social History Smoking Status: Never Smoker Substance Use Type: None - Medications Home Medications: Home Medications Medication Instructions Recorded Confirmed Last Taken Type Famotidine [Pepcid] 20 mg PO BID #30 tablet 07/01/17 09/28/19 Unknown Rx Meclizine [Antivert] 25 mg PO Q8HR PRN #20 tablet 07/01/17 09/28/19 Unknown Rx amLODIPine 5 mg PO QDAY #30 tablet 07/01/17 09/28/19 Unknown Rx predniSONE [Deltasone] 20 mg PO DAILY #5 tablet 08/30/18 09/28/19 Unknown Rx traMADoL [Ultram] 50 mg PO Q6HR PRN #12 tablet 08/30/18 09/28/19 Unknown Rx Atorvastatin 20 mg PO DAILY 09/28/19 09/28/19 09/26/19 History Hydrochlorothiazide 25 mg PO DAILY 09/28/19 09/28/19 09/26/19 History ED Review of Systems ROS: Stated complaint: RECTAL BLEEDING Other details as noted in HPI Comment: All other systems reviewed and negative Constitutional: denies: chills, fever Eyes: denies: eye pain, vision change ENT: denies: ear pain, throat pain Respiratory: SOB with exertion. denies: cough Cardiovascular: denies: chest pain, palpitations Gastrointestinal: other (rectal bleeding). denies: abdominal pain Genitourinary: denies: dysuria, discharge Musculoskeletal: denies: back pain, arthralgia Skin: denies: rash, lesions Neurological: other (dizzy/lightheaded). denies: headache Physical Exam - Physical Exam Vital Signs: Vital Signs 10/17/19 06:07 Temperature 98.2 F Pulse Rate 93 H Respiratory 18 Rate Blood Pressure 125/74 O2 Sat by Pulse 95 Oximetry Physical Exam: GENERAL: The patient is well-developed well-nourished. HENT: Normocephalic. Atraumatic. Patient has moist mucous membranes. EYES: Extraocular motions are intact. Pupils equal reactive to light bilaterally. No nystagmus. NECK: Supple. Trachea is midline. CHEST/LUNGS: Clear to auscultation. There is no respiratory distress noted. HEART/CARDIOVASCULAR: Regular. There is no tachycardia. There is no murmur. ABDOMEN: Abdomen is soft, nontender. Patient has normal bowel sounds. Obese habitus. SKIN: Skin is warm and dry. NEURO: The patient is awake, alert, and oriented. The patient is cooperative. The patient has no focal neurologic deficits. Normal speech. Cranial nerves II through XII grossly intact. MUSCULOSKELETAL: There is no tenderness or deformity. There is no limitation range of motion. There is no evidence of acute injury. ED Course Vital Signs 10/17/19 06:07 Temperature 98.2 F Pulse Rate 93 H Respiratory 18 Rate Blood Pressure 125/74 O2 Sat by Pulse 95 Oximetry - Consultations Consultation #1: 10/17/19 09:41 I spoke with the patient's front desk attendant, Dr. Majano. He thinks that, based on the patient's presentation, that the patient most likely has bleeding from around the hemorrhoidal band as opposed to the previous polypectomy. Given the patient's vitals and labs, he feels that the patient can be discharged to follow-up with him in the office today at 1 PM. ED Medical Decision Making - Lab Data Result diagrams: 10/17/19 06:53 10/17/19 06:53 - EKG Data -: EKG Interpreted by Me EKG shows normal: sinus rhythm, axis, intervals, QRS complexes, ST-T waves Rate: normal - EKG Data When compared to previous EKG there are: previous EKG unavailable Interpretation: normal EKG - Radiology Data Radiology results: image reviewed interpreted by me: Chest x-ray does not show any acute process. There are no pleural effusions, obvious pneumonia and there is no pneumothorax. Abdominal x-ray shows nonspecific nonobstructive bowel gas - Medical Decision Making This patient presents to the emergency department with complaint of gross rectal bleeding one time on Wednesday and then 4 times since last night. Her hemoglobin is about 10.5. The rest of the patient's are unremarkable including metabolic panel, negative troponins x2 and a negative d-dimer. The troponin and dimer were done as the patient was saying that she had some nonspecific dizziness. She does have a previous history of vertigo and labyrinth-itis. On examination she does not have any focal, motor or sensory deficits and her cranial nerves are intact. Her vital signs been stable throughout her ED course. The patient was tested walking around the emergency department and both appears and feels stable. She will be discharged home to follow-up with her front desk attendant and has been instructed to return to the emergency department with any worsening of her symptoms or any acute distress. - Differential Diagnosis Hemorrhoids, post polypectomy bleed, diverticulosis, malignancy Critical Care Time: No Critical care attestation.: If time is entered above; I have spent that time in minutes in the direct care of this critically ill patient, excluding procedure time. ED Disposition Clinical Impression: Dizziness GI bleed Qualifiers: GI bleed type/associated pathology: unspecified gastrointestinal hemorrhage t ype Qualified Code(s): K92.2 - Gastrointestinal hemorrhage, unspecified Disposition: DC-01 TO HOME OR SELFCARE Is pt being admited?: No Condition: Stable Instructions: Gastrointestinal Bleeding (ED), Lightheadedness (ED), Dizziness (ED) Additional Instructions: Please go directly to the office of your front desk attendant. Return to the emergency department with any worsening of your symptoms or any acute distress. Referrals: TEDDY VERONICA MD [Staff Physician] - 10/17/19 1:00 pm PRIMARY CAREMD [Primary Care Provider] - 2-3 Days Forms: Accompanied Note Time of Disposition: 12:52
--- NOTE | 2019-10-17 07:22 | XRay Report ---
ABDOMEN 3 VIEW(S) INDICATION / CLINICAL INFORMATION: Abd pain, SOB. COMPARISON: None available. FINDINGS: TUBES / LINES: None. BOWEL GAS PATTERN: No significant abnormality. FREE AIR / EXTRALUMINAL GAS: None seen. ADDITIONAL FINDINGS: Cholecystectomy change. IMPRESSION: 1. No significant abnormality. Signer Name: Jonathan Valdez MD Signed: 10/17/2019 7:17 AM Workstation Name: [id number]
[2019-10-17 07:34] LABS: INR 1.18 (0.87-1.13)
[2019-10-17 07:37] LABS: Partial Thromboplastin Time 29.6 Sec. (24.2-36.6)
[2019-10-17 07:38] LABS: BUN/Creatinine Ratio 28; Blood Urea Nitrogen 17 mg/dL (7-17); Calcium 8.8 mg/dL (8.4-10.2); Hemolysis Index 4
[2019-10-17 07:39] LABS: Alanine Aminotransferase 11 units/L (7-56); Albumin 3.5 g/dL (3.9-5)
[2019-10-17 07:43] LABS: Bilirubin,Direct < 0.2 mg/dL (0-0.2)
[2019-10-17] MEDS ORDERED: SODIUM CHLORIDE 0.9% 500 ML 500 ML IV ONE (09:31)
[2019-10-17 13:11] VITALS: BP 117/67
== END 2019-10-17 13:12 | disposition home or self-care (01) ==
LOC: ED 06:03
DX: K92.2 Gastrointestinal hemorrhage, unspecified (principal); R42 Dizziness and giddiness; R06.02 Shortness of breath; E78.00 Pure hypercholesterolemia, unspecified; Z98.890 Other specified postprocedural states; Z79.899 Other long term (current) drug therapy; Z91.018 Allergy to other foods
CPT/HCPCS: 36415; 74022; 80048; 80076; 84484; 85025; 85379; 85610; 85730; 93005; 93010; 94640; 99284; J7040; 94644

== ENCOUNTER 2019-11-01 18:23 | Emergency (ER) | payer OTHER ==
[2019-11-01 20:06] VITALS: BP 157/88
--- NOTE | 2019-11-01 20:06 | Emergency Department Report ---
Blank Doc - Documentation Documentation: 58-year-old female that presents with trip and fall with left knee pain, shoul siria, and lower back. This initial assessment/diagnostic orders/clinical plan/treatment(s) is/are subject to change based on patient's health status, clinical progression and re- assessment by fellow clinical providers in the ED. Further treatment and workup at subsequent clinical providers discretion. Patient/guardians urged not to elope from the ED as their condition may be serious if not clinically assessed and managed. Initial orders include: 1- Patient sent to [facility] for further evaluation and treatment 2- xrays
[2019-11-01] MEDS ORDERED: ONDANSETRON 4 MG ODT TAB PO ONE (20:34)
[2019-11-01] MEDS ORDERED: oxyCODONE /ACETAMINOPHEN 5-325MG TAB PO ONE (20:34)
[2019-11-01] MEDS ORDERED: IBUPROFEN 600 MG TAB PO ONE (20:34)
--- NOTE | 2019-11-01 21:33 | Cat Scan Report ---
CT HEAD WITHOUT CONTRAST INDICATION / CLINICAL INFORMATION: pain - fall with head injury. TECHNIQUE: All CT scans at this location are performed using CT dose reduction for ALARA by means of automated e xposure control. COMPARISON: None available. FINDINGS: HEMORRHAGE: No evidence of intracranial hemorrhage or extra-axial fluid collection. EXTRA-AXIAL SPACES: Cortical sulci, sylvian fissures and basilar cisterns have an unremarkable appear ance. VENTRICULAR SYSTEM: The ventricular system is of normal size and configuration. CEREBRAL PARENCHYMA: No areas of abnormal brain parenchymal attenuation are identified. There is no i ndication of recent infarction. Incidental note is made of physiological calcifications in the basal ganglia regions bilaterally. These are unchanged. MIDLINE SHIFT OR HERNIATION: There is no mass effect. CEREBELLUM / BRAINSTEM: Brainstem and cerebellum have an unremarkable appearance. INTRACRANIAL VESSELS:No abnormalities are identified on this noncontrast head CT. ORBITS: visualized portions of the orbits have an unremarkable appearance. SOFT TISSUES of HEAD: No significant abnormality. CALVARIUM: Evaluation of bone windows reveals no abnormalities. PARANASAL SINUSES / MASTOID AIR CELLS: Paranasal sinuses are free from inflammatory mucosal disease. Mastoid air cells are normally pneumatized. ADDITIONAL FINDINGS: Incidental note is made of calcification along the free edge of the tentorium wh ich is unchanged in comparison to previous study. IMPRESSION: 1. No acute intracranial abnormality. No significant interval change. Signer Name: Mino Romero MD Signed: 11/01/2019 9:29 PM Workstation Name: [id number]
--- NOTE | 2019-11-01 22:03 | XRay Report ---
LEFT SHOULDER 3 VIEWS INDICATION / CLINICAL INFORMATION: Fall with left shoulder pain. COMPARISON: None available. FINDINGS: BONES / JOINT(S): There are moderate degenerative changes involving the glenohumeral joint inferiorly . There are mild degenerative changes involving the acromioclavicular joint. There is no evidence of fracture or dislocation. SOFT TISSUES: No significant abnormality. ADDITIONAL FINDINGS: The visualized portion of the left lung is clear. Signer Name: Mariano Hopkins MD Signed: 11/01/2019 9:58 PM Workstation Name: [id number]
--- NOTE | 2019-11-01 22:03 | XRay Report ---
LEFT KNEE 3 VIEWS INDICATION / CLINICAL INFORMATION: Fall with left knee pain. COMPARISON: 08/30/18. FINDINGS: BONES / JOINT(S): There are moderate tricompartmental degenerative changes. There is a moderate supra patellar joint effusion. I see no evidence of fracture or dislocation. SOFT TISSUES: No significant abnormality. ADDITIONAL FINDINGS: None. Signer Name: Mariano Hopkins MD Signed: 11/01/2019 9:59 PM Workstation Name: [id number]
--- NOTE | 2019-11-01 22:04 | XRay Report ---
LUMBOSACRAL SPINE 3 VIEWS INDICATION / CLINICAL INFORMATION: Fall with low back pain. COMPARISON: None available. FINDINGS: BONES / JOINT(S): There is mild to moderate lower lumbar spondylosis. Mild anterolisthesis of L5 on S 1 is likely degenerative. I do not identify a fracture. SOFT TISSUES: No significant abnormality. ADDITIONAL FINDINGS: None. Signer Name: Mariano Hopkins MD Signed: 11/01/2019 10:00 PM Workstation Name: [id number]
--- NOTE | 2019-11-01 22:41 | Emergency Department Report ---
ED Fall HPI - General Chief Complaint: Fall Stated Complaint: GROUND LEVEL FALL/KNEE INJURY Time Seen by Provider: 11/01/19 20:04 Source: patient Mode of arrival: Wheelchair - History of Present Illness Initial Comments: Patient is a 58-year-old -[place]in[place] female with a history of hypertension and hyperlipidemia who presents to the ED with complaint of acute onset persist ent severe headache, low back pain, left shoulder and left knee pain after she tripped on the floor and fell down landing on the left side about 2 hours ago. Patient denies loss of consciousness, dizziness, lightheadedness, chest pain, shortness of breath, neck pain, change in vision, syncope, seizures, numbness and tingling or weakness of upper and lower extremities bilaterally, urinary or bowel incontinence and saddle paresthesia. Patient states that the pain is worse with any active range of motion of the left arm, left leg or lower back. MD Complaint: fall, other (left shoulder, left knee, left hip and lower back pain) -: Sudden, hour(s) (2) Fall From: standing, other (tripped and fell down on floor) When Fall Occurred: 1-3 hours [employer] LOAD[employer] Fall Witnessed: yes, by family Place Fall Occurred: home Loss of Consciousness: none Prolonged Down Time?: no Symptoms Prior to Fall: none Location: head, back (lower), other (left knee, lefts houlder pain) Location - Extremities: Left: Shoulder (pain), Thigh (left hip and thigh pain), Knee (Pain) Severity: severe Severity scale (0 -10): 8 Quality: sharp, aching Context: tripped/slipped Associated Symptoms: denies, headache. denies: neck pain, numbness, weakness, chest paint, shortness of breath, abdominal pain, unable to walk, lightheaded, vertigo, confusion, other - Related Data Home Medications Medication Instructions Recorded Confirmed Last Taken Atorvastatin 20 mg PO DAILY 09/28/19 09/28/19 09/26/19 Hydrochlorothiazide 25 mg PO DAILY 09/28/19 09/28/19 09/26/19 Previous Rx's Medication Instructions Recorded Last Taken Type Famotidine [Pepcid] 20 mg PO BID #30 tablet 07/01/17 Unknown Rx Meclizine [Antivert] 25 mg PO Q8HR PRN #20 tablet 11/09/17 Unknown Rx amLODIPine 5 mg PO QDAY #30 tablet 07/01/17 Unknown Rx predniSONE [Deltasone] 20 mg PO DAILY #5 tablet 08/30/18 Unknown Rx traMADoL [Ultram] 50 mg PO Q6HR PRN #12 tablet 08/30/18 Unknown Rx Ibuprofen [Motrin] 800 mg PO Q8HR PRN #30 tablet 11/01/19 Unknown Rx methOCARBAMOL [Robaxin TAB] 750 mg PO Q8H PRN #24 tablet 11/01/19 Unknown Rx traMADoL [Ultram 50 MG tab] 50 mg PO Q6HR PRN #12 tablet 11/01/19 Unknown Rx Allergies Allergy/AdvReac Type Severity Reaction Status Date / Time chocolate flavor Allergy Unknown Verified 10/17/19 06:15 ED Review of Systems ROS: Stated complaint: GROUND LEVEL FALL/KNEE INJURY Other details as noted in HPI Constitutional: denies: chills, fever Eyes: denies: eye pain, eye discharge, vision change ENT: denies: ear pain, throat pain Respiratory: denies: cough, shortness of breath, wheezing Cardiovascular: denies: chest pain, palpitations Endocrine: no symptoms reported Gastrointestinal: denies: abdominal pain, nausea, diarrhea Genitourinary: denies: urgency, dysuria, discharge Musculoskeletal: back pain (lower back), arthralgia (left hip, left knee and left shoulder), myalgia. denies: joint swelling Skin: denies: rash, lesions Neurological: headache. denies: weakness, paresthesias Psychiatric: denies: anxiety, depression Hematological/Lymphatic: denies: easy bleeding, easy bruising ED Past Medical Hx - Past Medical History Previous Medical History?: Yes Hx Hypertension: Yes Hx Arthritis: Yes Hx Asthma: Yes Additional medical history: OA. diverticulitis. hemorroids. high cholestrol - Surgical History Past Surgical History?: Yes Additional Surgical History: right foot surgery. - Social History Smoking Status: Never Smoker Substance Use Type: None - Medications Home Medications: Home Medications Medication Instructions Recorded Confirmed Last Taken Type Famotidine [Pepcid] 20 mg PO BID #30 tablet 07/01/17 09/28/19 Unknown Rx Meclizine [Antivert] 25 mg PO Q8HR PRN #20 tablet 07/01/17 09/28/19 Unknown Rx amLODIPine 5 mg PO QDAY #30 tablet 07/01/17 09/28/19 Unknown Rx predniSONE [Deltasone] 20 mg PO DAILY #5 tablet 08/30/18 09/28/19 Unknown Rx traMADoL [Ultram] 50 mg PO Q6HR PRN #12 tablet 08/30/18 09/28/19 Unknown Rx Atorvastatin 20 mg PO DAILY 09/28/19 09/28/19 09/26/19 History Hydrochlorothiazide 25 mg PO DAILY 09/28/19 09/28/19 09/26/19 History Ibuprofen [Motrin] 800 mg PO Q8HR PRN #30 tablet 11/01/19 Unknown Rx methOCARBAMOL [Robaxin TAB] 750 mg PO Q8H PRN #24 tablet 11/01/19 Unknown Rx traMADoL [Ultram 50 MG tab] 50 mg PO Q6HR PRN #12 tablet 11/01/19 Unknown Rx ED Physical Exam - General Limitations: No Limitations General appearance: alert, in no apparent distress - Head Head exam: Present: atraumatic, normocephalic, normal inspection - Eye Eye exam: Present: normal appearance, PERRL, EOMI Pupils: Present: normal accommodation - ENT ENT exam: Present: normal exam, normal orophraynx, mucous membranes moist, TM's normal bilaterally, normal external ear exam - Neck Neck exam: Present: normal inspection, full ROM. Absent: tenderness - Respiratory Respiratory exam: Present: normal lung sounds bilaterally. Absent: respiratory distress, wheezes, rhonchi, chest wall tenderness, accessory muscle use - Cardiovascular Cardiovascular Exam: Present: regular rate, normal rhythm, normal heart sounds. Absent: systolic murmur, diastolic murmur, rubs, gallop - GI/Abdominal GI/Abdominal exam: Present: soft, normal bowel sounds. Absent: tenderness, guarding, hyperactive bowel sounds - Extremities Exam Extremities exam: Present: normal inspection, tenderness (Palpable left shoulder tenderness with limited range of motion due to pain; palpable left knee tenderness with limited range of motion due to pain), normal capillary refill. Absent: full ROM (Limited range of motion of left shoulder and left knee due to pain) - Back Exam Back exam: Present: normal inspection, full ROM, tenderness (Palpable lumbosacral paraspinal musculoskeletal tenderness), muscle spasm, paraspinal tenderness - Neurological Exam Neurological exam: Present: alert, oriented X3, CN II-XII intact, normal gait, reflexes normal - Psychiatric Psychiatric exam: Present: normal affect, normal mood - Skin Skin exam: Present: warm, dry, intact, normal color. Absent: rash ED Course Vital Signs 11/01/19 20:04 Temperature 98.8 F Pulse Rate 78 Respiratory 20 Rate Blood Pressure 157/88 O2 Sat by Pulse 97 Oximetry ED Medical Decision Making - Radiology Data Radiology results: report reviewed, image reviewed Findings [facility] [address] [place] [address] Cat Scan Report Signed Patient: HAIDER GIRON MR#: [id number] : 1960 Acct:[id number] Age/Sex: 58 / F ADM Date: 11/01/19 Loc: ED Attending Dr: Ordering Physician: PATSY DODD Date of Service: 11/01/19 Procedure(s): CT head/brain wo con Accession Number(s): [id number] cc: PATSY DODD CT HEAD WITHOUT CONTRAST INDICATION / CLINICAL INFORMATION: pain - fall with head injury. TECHNIQUE: All CT scans at this location are performed using CT dose reduction for ALARA by means of automated exposure control. COMPARISON: None available. FINDINGS: HEMORRHAGE: No evidence of intracranial hemorrhage or extra-axial fluid collection. EXTRA-AXIAL SPACES: Cortical sulci, sylvian fissures and basilar cisterns have an unremarkable appearance. VENTRICULAR SYSTEM: The ventricular system is of normal size and configuration. CEREBRAL PARENCHYMA: No areas of abnormal brain parenchymal attenuation are identified. There is no indication of recent infarction. Incidental note is made of physiological calcifications in the basal ganglia regions bilaterally. These are unchanged. MIDLINE SHIFT OR HERNIATION: There is no mass effect. CEREBELLUM / BRAINSTEM: Brainstem and cerebellum have an unremarkable appearance. INTRACRANIAL VESSELS:No abnormalities are identified on this noncontrast head CT. ORBITS: visualized portions of the orbits have an unremarkable appearance. SOFT TISSUES of HEAD: No significant abnormality. CALVARIUM: Evaluation of bone windows reveals no abnormalities. PARANASAL SINUSES / MASTOID AIR CELLS: Paranasal sinuses are free from inflammatory mucosal disease. Mastoid air cells are normally pneumatized. ADDITIONAL FINDINGS: Incidental note is made of calcification along the free edge of the tentorium which is unchanged in comparison to previous study. IMPRESSION: 1. No acute intracranial abnormality. No significant interval change. Signer Name: Mino Romero MD Signed: 11/01/2019 9:29 PM Workstation Name: [id number] Transcribed By: Dictated By: Mino Romero MD Electronically Authenticated By: Mino Romero MD Signed Date/Time: 11/01/192128 DD/ 25 TD/TT: Findings [facility] [address] [place] [address] XRay Report Signed Patient: HAIDER GIRON MR#: [id number] : 1960 Acct:[id number] Age/Sex: 58 / F ADM Date: 11/01/19 Loc: ED Attending Dr: Ordering Physician: CASSIDY BARAJAS NP Date of Service: 11/01/19 Procedure(s): XR shoulder 2+V LT Accession Number(s): [id number] cc: CASSIDY BARAJAS NP Fluoro Time In Minutes: LEFT SHOULDER 3 VIEWS INDICATION / CLINICAL INFORMATION: Fall with left shoulder pain. COMPARISON: None available. FINDINGS: BONES / JOINT(S): There are moderate degenerative changes involving the glenohumeral joint inferiorly. There are mild degenerative changes involving the acromioclavicular joint. There is no evidence of fracture or dislocation. SOFT TISSUES: No significant abnormality. ADDITIONAL FINDINGS: The visualized portion of the left lung is clear. Signer Name: Mariano Hopkins MD Signed: 11/01/2019 9:58 PM Workstation Name: [id number] Transcribed By: RT Dictated By: Mariano Hopkins MD Electronically Authenticated By: Mariano Hopkins MD Signed Date/Time: 11/01/192157 DD/ 2157 TD/TT: Findings [facility] [address] [place] [address] XRay Report Signed Patient: HAIDER GIRON MR#: [id number] : 1960 Acct:[id number] Age/Sex: 58 / F ADM Date: 11/01/19 Loc: ED Attending Dr: Ordering Physician: CASSIDY BARAJAS NP Date of Service: 11/01/19 Procedure(s): XR spine lumbosacral 2-3V Accession Number(s): [id number] cc: CASSIDY BARAJAS NP Fluoro Time In Minutes: LUMBOSACRAL SPINE 3 VIEWS INDICATION / CLINICAL INFORMATION: Fall with low back pain. COMPARISON: None available. FINDINGS: BONES / JOINT(S): There is mild to moderate lower lumbar spondylosis. Mild anterolisthesis of L5 on S1 is likely degenerative. I do not identify a fracture. SOFT TISSUES: No significant abnormality. ADDITIONAL FINDINGS: None. Signer Name: Mariano Hopkins MD Signed: 11/01/2019 10:00 PM Workstation Name: [id number] Transcribed By: RT Dictated By: Mariano Hopkins MD Electronically Authenticated By: Mariano Hopkins MD Signed Date/Time: 11/01/192199 DD/ 58 TD/TT: Findings [facility] [address] [place] [address] XRay Report Signed Patient: HAIDER GIRON MR#: [id number] : 1960 Acct:[id number] Age/Sex: 58 / F ADM Date: 11/01/19 Loc: ED Attending Dr: Ordering Physician: CASSIDY BARAJAS NP Date of Service: 11/01/19 Procedure(s): XR knee 3V LT Accession Number(s): [id number] cc: CASSIDY BARAJAS NP Fluoro Time In Minutes: LEFT KNEE 3 VIEWS INDICATION / CLINICAL INFORMATION: Fall with left knee pain. COMPARISON: 08/30/18. FINDINGS: BONES / JOINT(S): There are moderate tricompartmental degenerative changes. There is a moderate suprapatellar joint effusion. I see no evidence of fracture or dislocation. SOFT TISSUES: No significant abnormality. ADDITIONAL FINDINGS: None. Signer Name: Mariano Hopkins MD Signed: 11/01/2019 9:59 PM Workstation Name: [id number] Transcribed By: RT Dictated By: Mariano Hopkins MD Electronically Authenticated By: Mariano Hopkins MD Signed Date/Time: 11/01/192158 DD/ 57 TD/TT: - Medical Decision Making This is a 58-year-old female who presented to the ED with acute onset persistent severe left knee pain, left shoulder pain, low back pains and headache after she tripped on the floor and fell down landing on the left side and in the process hit her head on the floor with no loss of consciousness about 2 hours ago. In the ED, patient is alert and oriented x3 and is not in any distress but appears to be in significant pain. Patient was treated for pain in the ED and the head CT scan without contrast shows no acute intracranial abnormalities or hemorrhage. The left shoulder x-ray shows no acute fractures or subluxation but degenerative joint disease in the glenohumeral joint and AC joint. The L-spine x-ray shows no acute fractures or subluxations but degenerative lumbar disc disease. The left knee x-ray also shows no acute fractures or subluxations but tricompartmental degenerative joint disease with effusion. On reevaluation, patient's pain is well controlled with medications. Patient was discharged home on pain medications and muscle relaxants and was advised to follow-up with her primary care physician in 5 to 7 days for reevaluation or return to the ED immediately if symptoms get worse. - Differential Diagnosis Knee sprain; shoulder injury; Muscle spasm; knee facture, scalp contusion Critical care attestation.: If time is entered above; I have spent that time in minutes in the direct care of this critically ill patient, excluding procedure time. ED Disposition Clinical Impression: Spasm of muscle of lower back, Chronic osteoarthritis Contusion of scalp Qualifiers: Encounter type: initial encounter Qualified Code(s): S00.03XA - Contusion of scalp, initial encounter Sprain of left shoulder girdle Qualifiers: Encounter type: initial encounter Qualified Code(s): S43.92XA - Sprain of unspecified parts of left shoulder girdle, initial encounter Sprain of left knee/leg Qualifiers: Encounter type: initial encounter Qualified Code(s): S83.92XA - Sprain of unspecified site of left knee, initial encounter Disposition: DC- TO HOME OR SELFCARE Is pt being admited?: No Does the pt Need Aspirin: No Condition: Stable Instructions: Knee Sprain (ED), Shoulder Sprain (ED), Muscle Spasm (ED), Back Pain (ED) Additional Instructions: All the x-ray reports show no acute fractures or subluxations. The head CT scan without contrast also shows no acute intracranial abnormalities or hemorrhage. Therefore take pain medications and muscle relaxants with food as advised, drink plenty fluids and follow-up with your primary care physician in 5 to 7 days for reevaluation or return to the ED immediately if symptoms get worse. Prescriptions: Ibuprofen [Motrin] 800 mg PO Q8HR PRN #30 tablet PRN Reason: Pain , Severe (7-10) methOCARBAMOL [Robaxin TAB] 750 mg PO Q8H PRN #24 tablet PRN Reason: Muscle Spasm traMADoL [Ultram 50 MG tab] 50 mg PO Q6HR PRN #12 tablet PRN Reason: Pain Referrals: [facility] [Outside] - 3-5 Days Forms: Work/School Release Form(ED) Time of Disposition: 22:48 Print Language: SALVADOREAN
== END 2019-11-01 23:01 | disposition home or self-care (01) ==
LOC: ED 18:23
DX: S43.92XA Sprain of unspecified parts of left shoulder girdle, initial encounter (principal); S83.92XA Sprain of unspecified site of left knee, initial encounter; S00.03XA Contusion of scalp, initial encounter; M19.90 Unspecified osteoarthritis, unspecified site; M62.830 Muscle spasm of back; I10 Essential (primary) hypertension; J45.909 Unspecified asthma, uncomplicated; Z98.890 Other specified postprocedural states; Z79.1 Long term (current) use of non-steroidal anti-inflammatories (NSAID); Z79.899 Other long term (current) drug therapy; Z88.8 Allergy status to other drugs, medicaments and biological substances
CPT/HCPCS: 70450; 72100; Q0162